=== PATIENT | male | born 1990 | race Caucasian/White ===

== ENCOUNTER 2020-11-22 09:25 | Emergency (ER) | payer OTHER, SELFPAY ==
[2020-11-22 09:33] VITALS: BP 131/84; PULSE 96; RESP 18; TEMP 37.5; O2SAT 100
--- NOTE | 2020-11-22 10:16 | ED.URI ---
HPI - URI/Sore Throat General Chief Complaint: Upper Respiratory Infection Stated Complaint: sore throat/fever/body aches Source: patient and RN notes reviewed Mode of arrival: ambulatory History of Present Illness HPI Narrative: This is a 30-year-old male who presented to urgent care with complaints of sore throat, fever, nonproductive cough ,tenderness underneath his chin, armpits and groin area. According to patient approximately 1 week ago he developed a sore throat that he attributed to his allergies he did take ibuprofen with zinc and vitamin D at home with no relief he noted on Friday he developed a fever of 101.7 with body aches, on Friday he did test negative for Covid. He also notes that he started to develop tenderness when his neck and under his chin also under his armpit bilateral in his groin area. Patient did note that his stepdaughter recently tested positive for strep.. Patient strep and mono test both negative he will be treated for pharyngitis. The patient denies SOB, CP, palpitation, extremity numbness, lightheadedness, dizziness, constipation, diarrhea, chills, or fever. MD elicited complaint: fever, cough and sore throat Related Data Allergies Allergy/AdvReac Type Severity Reaction Status Date / Time buspirone Allergy Intermediate TONGUE, Verified 08/09/16 18:40 THROAT LIP TINGLING Review of Systems Review of Systems: A 14 organ system Review of Systems was performed and pertinent positives included in the HPI, otherwise remaining ROS is negative. [facility] Family History Family History (Updated 11/22/20 @ 10:18 by SHAY Leon-C) Other Family history non-contributory Exam Narrative: GENERAL: This is a well-nourished, well-developed patient, in no apparent distress. HEAD: normocephalic, atraumatic. EYES: PERRL. Sclera clear/white. Vision is grossly intact. EARS: External ears normal, auditory canals clear and without drainage, TMs normal without perforation. Hearing grossly intact. NOSE: External nose normal with no obvious nasal discharge, nares without redness, no rhinorrhea. THROAT: Mucous membranes moist, posterior pharynx edema with erythematous. Swollen thyroid bilateral NECK: Neck supple, non-tender without lymphadenopathy, masses or thyromegaly. CARDIOVASCULAR: Regular rate and rhythm without murmurs, gallops, or rubs. RESPIRATORY: Clear to auscultation. Breath sounds equal bilaterally. No wheezes, rales, or rhonchi. GASTROINTESTINAL: Abdomen soft, non-tender, nondistended. Bowel sounds are active. No hepato-splenomegaly, or palpable masses. No guarding. SKIN: warm, intact with no suspicious lesions or rash, good texture and turgor. NEURO: awake, alert, and oriented to person, place and time. There were no obvious focal neurologic abnormalities. Steady gait EXTREMITIES: Normal range of motion. No edema. No calf tenderness. Negative Homans sign bilaterally. Bilateral axillary t lymphadenopathy tenderness BACK: Nontender without deformity or crepitance. No flank tenderness. Course Course Emergency Course: Patient being treated first pharyngitis Augmentin 875 every 12 hours for 7 days Vital Signs Vital signs: Vital Signs Temperature 99.5 F 11/22/20 09:33 Pulse Rate 96 11/22/20 09:33 Respiratory Rate 18 11/22/20 09:33 Blood Pressure 131/84 11/22/20 09:33 Pulse Oximetry 100 11/22/20 09:33 Temperature 99.5 F 11/22/20 09:33 Pulse Rate 96 11/22/20 09:33 Respiratory Rate 18 11/22/20 09:33 Blood Pressure 131/84 11/22/20 09:33 Pulse Oximetry 100 11/22/20 09:33 MDM - URI/Sore Throat Differential Diagnosis Differential diagnosis: Likely upper respiratory infection, viral infection, pharyngitis and other (Strep versus mono) Lab Data Attestation: I reviewed the patient's lab results. Labs: Strep Screen Presumptive Negative *(Reference Range: Negative)* [place] Screen Negative
== END 2020-11-22 10:21 | disposition home or self-care (01) ==
PROVIDERS: Emergency Provider Nurse Practitioner
DX: J02.9 Acute pharyngitis, unspecified (principal)
CPT/HCPCS: 36416; 86308; 87081; 87880; 99213; G0463

== ENCOUNTER 2022-08-26 23:23 | Emergency (ER) | payer OTHER, SELFPAY ==
--- NOTE | ~2022-08-26 | CT_ITS ---
CT of the Abdomen and Pelvis: Indication: Abdominal pain Technique: 2.5 mm axial scans were obtained through the abdomen and pelvis following intravenous adm inistration of 100 cc of Omnipaque 350. Dose reduction technique was used on this scan by utilizing a utomated exposure control and iterative reconstruction technique. The dose-length product (DLP) was 4 46.55 mGy-cm. Findings: Scans through the lung bases are unremarkable. The liver, spleen, pancreas, gallbladder, adrenals and right kidney are within normal limits. Probabl e punctate nonobstructing left renal stone noted. No evidence of aortic aneurysm. No lymphadenopathy . No bowel obstruction or bowel wall thickening. There is no evidence to suggest acute appendicitis. Images through the pelvis were performed. Urinary bladder unremarkable. Prostate gland and seminal ve sicles are unremarkable. No ascites. Impression: Punctate nonobstructing left renal stone. No other significant findings. Reviewed, dictated and finalized at [facility]. Impression: Punctate nonobstructing left renal stone. No other significant findings.
[2022-08-26 23:32] VITALS: BP 107/94; PULSE 86; RESP 16; TEMP 36.9; O2SAT 99
[2022-08-26 23:54] LABS: Basophils Percent Auto 0.4 % (0.2-1.2); Eosinophils Absolute Auto 0.2 K/mm3 (0-0.3); Eosinophils Percent Auto 2.2 % (0-4.4); Hemoglobin 17.1 g/dL (14.0-18.0); Immature Granulocyte Absolute 0.03 K/mm3 (0.00-0.031); Immature Granulocyte Percent A 0.3 % (0-0.5); Lymphocytes Absolute Auto 3.46 K/mm3 (0.9-3.2); Lymphocytes Percent Auto 37.2 % (18.3-44.2); Mean Corpuscular HGB Conc 34.2 g/dl (32-36); Mean Corpuscular Hemoglobin 30.9 pg (26-34); Mean Corpuscular Volume 90.3 fl (80-100); Mean Platelet Volume 9.5 fl (7.4-10.4); Monocytes Absolute Auto 0.6 K/mm3 (0.1-0.6); Monocytes Percent Auto 6.8 % (2.6-8.5); Neutrophils Absolute Auto 4.9 K/mm3 (1.3-6.7); Neutrophils Percent Auto 53.1 % (45.5-73.1); Platelet Count Result 214 k/mm3 (150-375); Red Blood Count 5.54 M/mm3 (4.6-6.20); Red Cell Distribution Width 13.1 % (11.5-14.5); White Blood Count 9.3 K/mm3 (4.5-10.0)
[2022-08-27 00:01] LABS: Appearance Urine Turbid (Clear); Bacteria Urine None Seen /hpf; Bilirubin Urine Negative (Negative); Blood Urine Negative (Negative); Color Urine Yellow (Yellow); Glucose Urine UA Negative (Negative); Ketones Urine Negative (Negative); Leukocyte Esterase Ur Negative LEU/UL (Negative); Nitrate Urine Negative (Negative); Non Pathogenic Casts 0-2; Protein Urine Trace mg/dL (Negative); RBC Urine 0-2 /hpf (0-2); Squamous Epithelial Cell Urine None seen /hpf (Few); WBC Urine 0-5 /hpf; pH Urine 8.5 (5.0-9.0)
[2022-08-27 00:05] LABS: Add Urine Microscopic? YES
[2022-08-27 00:15] LABS: Alanine Aminotransferase 46 U/L (6-50); Albumin Level 4.6 g/dL (3.5-5.1); Alkaline Phosphatase 84 U/L (38-126); Anion Gap 6 mmol/L (8-16); Aspartate Amino Transferase 64 U/L (17-59); Bilirubin,Total 1.2 mg/dL (0.2-1.3); Blood Urea Nitrogen 20 mg/dL (9-20); Carbon Dioxide 35 mmol/L (22-30); Chloride 100 mmol/L (98-107); Estimated CRCL calculation 93 ml/min; Estimated Glomerular Filt Rate > 60; Glucose 107 mg/dL (65-110); Lipase 100 U/L (23-300); Potassium 3.5 mmol/L (3.4-5.0); Sodium 141 mmol/L (137-145)
[2022-08-27] MEDS: ONDANSETRON INJ 4 MG/2 ML VIAL IV PUSH (02:16)
[2022-08-27] MEDS: SODIUM CHLORIDE 0.9% IV 1,000 ML 999 ML IV CONT (02:17)
--- NOTE | 2022-08-27 03:15 | ED.GENADULT ---
HPI - General Adult General Chief complaint: Abdominal Pain Stated complaint: epigastric/abd pain radaites to back Time Seen by Provider: 08/27/22 01:44 History of Present Illness HPI narrative: Patient 32-year-old gentleman who presents the emergency department with chief complaint of abdominal pain and nausea and vomiting. The patient reports that he laid down this evening and started having severe pain in the epigastric region patient reports the pain shot to his back reports that he had several episodes of nausea and vomiting. Patient reports that the vomiting has stopped at this point still feels uncomfortable in his abdomen. Patient reports no fever denies diarrhea Related Data Allergies Allergy/AdvReac Type Severity Reaction Status Date / Time buspirone Allergy Intermediate TONGUE, Verified 08/27/22 01:51 THROAT LIP TINGLING amoxicillin Allergy Itching Verified 08/27/22 02:02 Penicillins Allergy Itching Verified 08/27/22 01:51 Review of Systems Review of Systems: A 10 system review of systems was completed on the patient and is negative except for what is stated in the HPI. Nursing and ancillary documentation was reviewed. [facility] Family History Family History Other Family history non-contributory Exam Narrative: GENERAL: Well-appearing, well-nourished, and in no acute distress. HEAD: Normocephalic, atraumatic. EYES: PERRLA and EOMI. ENT: Nares clear, no rhinorrhea or epistaxis. Mucous membranes moist. NECK: Supple. CHEST: Clear to auscultation. No respiratory distress. HEART: Regular rate and rhythm. No murmur heard. Normal peripheral pulses. ABDOMEN: Soft, tenderness to palpation in the right lower quadrant, nondistended, normal active bowel sounds. EXTREMITIES: Normal range of motion. No edema. SKIN: Warm, dry, no rash. NEURO: No focal deficits. Alert and oriented x3. PSYCH: Normal mood and affect. Course Vital Signs Vital signs: Vital Signs Temperature 36.9 C 08/26/22 23:32 Pulse Rate 86 08/26/22 23:32 Respiratory Rate 16 08/26/22 23:32 Blood Pressure 107/94 H 08/26/22 23:32 Pulse Oximetry 99 08/26/22 23:32 Oxygen Delivery Room Air 05/08/23 23:32 Temperature 36.9 C 08/26/22 23:32 Pulse Rate 62 08/27/22 03:27 Respiratory Rate 16 08/27/22 03:27 Blood Pressure 112/74 08/27/22 03:27 Pulse Oximetry 94 08/27/22 03:27 Oxygen Delivery Room Air 08/26/22 23:32 Medical Decision Making MDM Narrative Medical decision making narrative: Differential diagnosis includes ureterolithiasis, gastroenteritis gastritis cholecystitis cholelithiasis Laboratory studies were obtained which showed a white blood cell count of 9.3 hemoglobin 70.1 electrolytes are within normal limits with the exception of a AST of 64 urinalysis showed 0-5 WBCs. Patient received normal saline boluses and antiemetics in the emergency department and is feeling much better at this time CT scan of the abdomen pelvis was obtained which showed no acute abnormalities. Vital Signs Vital Signs: Vital Signs Temperature 36.9 C 08/26/22 23:32 Pulse Rate 86 08/26/22 23:32 Respiratory Rate 16 08/26/22 23:32 Blood Pressure 107/94 H 08/26/22 23:32 Pulse Oximetry 99 08/26/22 23:32 Oxygen Delivery Room Air 08/26/22 23:32 Temperature 36.9 C 08/26/22 23:32 Pulse Rate 62 08/27/22 03:27 Respiratory Rate 16 08/27/22 03:27 Blood Pressure 112/74 08/27/22 03:27 Pulse Oximetry 94 08/27/22 03:27 Oxygen Delivery Room Air 08/26/22 23:32 Lab Data 08/26/22 23:44 08/26/22 23:44 Labs: Lab Results 08/26/22 Range/Units 23:44 WBC 9.3 (4.5-10.0) K/mm3 RBC 5.54 (4.6-6.20) M/mm3 Hgb 17.1 (14.0-18.0) g/dL Hct 50.0 (42.0-52.0) % MCV 90.3 (80-100) fl MCH 30.9 (26-34) pg MCHC 34.2 (32-36) g/dl RDW 13.1 (11.5-14.5) % Plt Count
[2022-08-27 03:27] VITALS: BP 112/74; PULSE 62; RESP 16; O2SAT 94
[2022-08-27 05:09] VITALS: BP 108/56; PULSE 56; RESP 17; O2SAT 98
== END 2022-08-27 05:10 | disposition home or self-care (01) ==
PROVIDERS: Emergency Provider Emergency Medicine; PCP Nurse Practitioner Family
DX: R11.2 Nausea with vomiting, unspecified (principal); R10.84 Generalized abdominal pain
CPT/HCPCS: 36415; 74177; 80053; 81001; 83690; 85025; 96361; 96374; 99284; J2405; J7030; Q9967

== ENCOUNTER 2022-12-23 12:37 | Emergency (ER) | payer BC, SELFPAY ==
[2022-12-23 12:52] VITALS: BP 129/82; PULSE 91; RESP 14; TEMP 37.3; O2SAT 98
--- NOTE | 2022-12-23 14:00 | ED.URI ---
HPI - URI/Sore Throat General Chief Complaint: Upper Respiratory Infection Stated Complaint: headaches,cough,congestion Time Seen by Provider: 12/23/22 13:51 Source: patient and RN notes reviewed Mode of arrival: ambulatory Limitations: no limitations History of Present Illness HPI Narrative: Patient presents today with a one-week history of cough, congestion, headache, shortness of breath with exertion. He has been using ibuprofen and cough drops with some relief. He has taken a home COVID-19 test that was negative. Denies known sick contacts. Denies fever. Denies history of asthma or COPD. Smokes 2 packs per day. Related Data Home Medications Medication Instructions Recorded Confirmed alprazolam 1 mg tablet mg 12/23/22 Allergies Allergy/AdvReac Type Severity Reaction Status Date / Time buspirone Allergy Intermediate TONGUE, Verified 12/23/22 14:03 THROAT LIP TINGLING amoxicillin Allergy Itching Verified 12/23/22 14:03 Penicillins Allergy Itching Verified 12/23/22 14:03 Review of Systems Review of Systems: CONSTITUTIONAL: Denies body aches, fever, chills, or sweats. EYES: Denies visual changes, redness, or discharge. ENT: Denies rhinorrhea, sore throat, or otalgia.+ congestion CARDIOVASCULAR: Denies chest pain, palpitations, or edema. RESPIRATORY:+ cough, shortness of breath with exertion GASTROINTESTINAL: Denies abdominal pain, nausea, vomiting, or diarrhea. GENITOURINARY: Denies dysuria or hematuria. SKIN: Denies rash, itching, or wounds. MUSCULOSKELETAL: Denies back pain, joint pain, or myalgia. NEUROLOGIC: Denies numbness, tingling, or weakness.+ headache PSYCH: Denies depression or anxiety. [facility] Family History Family History Other Family history non-contributory Social History Social History (Updated 12/23/22 @ 14:02 by Roma Monique, [employer], [place]) Smoking packs per day: 2 Smoking cigarettes per day: 40.0 Smoking status: Current every day smoker Tobacco type: cigarettes Comments At time of signature, I have reviewed and agree with nursing past medical, surgical, social and family history unless otherwise noted. Please see nursing chart for further information. There is no relevant family history pertinent to the presenting complaint Exam Narrative: GENERAL: Mildly ill-appearing, well-nourished, and in no acute distress. HEAD: Normocephalic, atraumatic. EYES: EOMI. No redness or drainage. Conjunctivae normal. ENT: Mucous membranes pink and moist. Nares congested. No rhinorrhea. TMs normal bilaterally. Throat normal. Uvula midline. NECK: Normal AROM. Supple. No lymphadenopathy. CHEST: No respiratory distress. Expiratory wheezing throughout. HEART: Regular rate and rhythm. No murmur appreciated. Normal peripheral pulses. EXTREMITIES: Normal range of motion. No edema. SKIN: Warm, dry, no rash. Capillary refill normal. Normal skin turgor. NEURO: No focal deficits. Alert and oriented x3. Gait steady. PSYCH: Normal affect. No signs of depression or anxiety. Course Course Level of Care: Express Care Visit Vital Signs Vital signs: Vital Signs Temperature 99.2 F 12/23/22 12:52 Pulse Rate 91 12/23/22 12:52 Respiratory Rate 14 12/23/22 12:52 Blood Pressure 129/82 12/23/22 12:52 Pulse Oximetry 98 12/23/22 12:52 Oxygen Delivery Room Air 12/23/22 12:52 Temperature 99.2 F 12/23/22 12:52 Pulse Rate 91 12/23/22 12:52 Respiratory Rate 14 12/23/22 12:52 Blood Pressure 129/82 12/23/22 12:52 Pulse Oximetry 98 12/23/22 12:52 Oxygen Delivery Room Air 12/23/22 12:52 Reviewed. Pt has been instructed to follow up with his PCP regarding his elevated blood pressure today. MDM - URI/Sore Throat MDM Narrative Medical decision making narrative: Due to patient's heavy smoking and 1 week of symptoms, I feel it indicated to treat him with antibiotics at this t
== END 2022-12-23 14:08 | disposition home or self-care (01) ==
PROVIDERS: Emergency Provider Nurse Practitioner; PCP Nurse Practitioner Family
DX: J40 Bronchitis, not specified as acute or chronic (principal); J06.9 Acute upper respiratory infection, unspecified; F17.210 Nicotine dependence, cigarettes, uncomplicated
CPT/HCPCS: 99213; G0463